=== PATIENT | male | born 1950 | race Caucasian/White ===

== ENCOUNTER 2025-02-10 14:56 | Outpatient (REF) | payer SELFPAY ==
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
--- OUTSIDE RECORDS SUMMARY | 2025-02-10 18:04 | XMS_ITS | Continuity of Care Document ---
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 Patient tolerating medication well at current dose without adverse effects. Refilled as below. Discussed plan with patient, who expressed understanding . Follow up as noted below. [email or web address] Not available 02/10/2025 14:42:10 Plan of Treatment Reminders Order Date Submit Date Provider Last Modified By Organization Details Last Modified Time Details Appointments FOLLOW UP 15 2024 02:15P REYNA ROLDAN Not available Not available Not available Lab hemoglobi n A1c, QN, blood 2024 025 [facility], [address] [place] [address], [id number], 02/10/2025 14:55:19 CMP, serum or plasma 2024 025 [facility], [address] [place] [address], [id number], 02/10/2025 14:55:19 CBC w/ auto diff 2024 025 [facility], [address] [place] [address], [id number], 02/10/2025 14:55:20 Referral None recorded. Procedures None recorded. Surgeries None recorded. Imaging None recorded. Medication Orders metoprolo l succinate ER 50 mg tablet,ex tended release 24 hr 2024 025 [id number], [address], [address], [place], [address], 02/10/2025 14:49:24 Patient TargetsNo targets recorded. Patient InstructionsNo instructions recorded. Reason for Referral None Reported. Problems Name Problem SNOMED Code Status Onset Date Resolution Date Notes Provider Name and Address Organization Details Recorded Time Parminder dillard 37051834 Active 2021 REYNA ARNOLD [address] [place], [address], [facility] 2 11:12:07 Adjustme nt disorder with depresse d mood 88484686 Active 2021 REYNA ARNOLD [address] [place] [address], [address], [facility] 2 16:40:04 Insomnia 384078066 Active 2021 REYNA ARNOLD [address] [place], [address], [facility] 2 10:58:30 Anxiety 23229015 Active 2022 REYNA ARNOLD [address] [place] [address], [address], [facility] 3 11:41:12 Pain of right shoulder joint 69860311415 458045 Active 2023 REYNA ARNOLD [address] [place] [address], [address], [facility] 4 09:26:29 Impaired fasting glycemia 508342261 Active 2024 REYNA ARNOLD [address] [place] [address], [address], [facility] 5 14:42:22 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 jessie Dobson [facility] [address] [place], [address], [facility] 8 11:07:41 Problem Notes None recorded. Medical Equipment None Reported. Allergies Allergen ID Allergen Name Allergen Category Reaction Reaction Severity Criticality Documentation Date Start Date Code Code System Note Provider Name and Address Organization Details Recorded Time 6160 eggplant allergeni c extract food Not available Not available Not available 09/22/2022 94913 1 RxNorm Janelle fields, [facility] 2 15:59:56 6287 trazodone medicatio n other Not available Not available 11/15/2022 15907 RxNorm sever e heart burn REYNA ARONLD [address] [place], [address], [facility] 3 11:30:56 Medications Name Sig [...] Not Available Vitals Date Recorded Body height Body mass index (BMI) Body weight Heart rate Oxygen saturation Oxygen saturation in Arterial blood by Pulse oximetry Systolic blood pressure Diastolic blood pressure Provider Name and Address Organization Details Last Updated DateTime 5 171.45 cm 28.7 kg/m2 68816.2 6 g 80 /min 96 % 96 % 130 mm[Hg] 84 mm[Hg] Alisa Tavares [facility] 5 14:24:43 Social History Question Answer Notes LastModified by Organizat ion Details LastModified Time Tobacco Smoking Status Current Every Day Smoker Not Available [facility] 03:36:24 What Was The Date Of Your Most Recent Tobacco Screening? 02/10/2025 [email or web address] Information not available 02/10/2025 How Much Tobacco Do You Smoke? 0.25 PPD Information not available 10/23/2022 How Many Years Have You Smoked Tobacco? 50 [id number] Information not available 09/07/2020 Do You Or [...] 30 mcg/0.3 mL dose 01/13/2021 completed Sonal [place] null, [facility] 11/15/2022 08:27:50 COVID-19, mRNA, LNP-S, PF, 30 mcg/0.3 mL dose 02/03/2021 completed Sonal fields, [facility] 11/15/2022 08:27:56 COVID-19, mRNA, LNP-S, PF, 30 mcg/0.3 mL dose 08/16/2021 completed Sonal fields [facility] 11/15/2022 08:28:03 COVID-19, mRNA, LNP-S, PF, 50 mcg/0.5 mL dose 08/29/2022 completed Sonal fields [facility] 11/15/2022 08:28:16 zoster recombinant 11/10/2022 completed Sonal fields [facility] 11/15/2022 08:28:38 influenza, unspecified formulation 08/29/2022 completed Sonal fields [facility] 11/15/2022 08:28:50 Past Encounters Encounter ID Performer Location Encounter Start Date Encounter Closed Date Diagnosis/Indication Diagnosis SNOMED-CT Code Diagnosis ICD10 Code Diagnosis Note [id number] REYNA ARNOLD [facility] [address],[place] [address] 02/10/2025 14:07:44 02/10/2025 15:47:01 Renewal of prescription 717445258 Z76.0 all set, 90 days Essential hypertension 18480776 I10 continue on metoprolol Impaired f asting glycemia 636642853 R73.01 will check BW for patien Health Concerns Section Related Observation LastModified by Organization Detai ls LastModified Time None Recorded Concern Status LastModified by Organization Details LastModified Time None Recorded Payers Encounter Date Sequence Insurance Name Policy Number Policy Jose Covered Member ID Jose Member ID Guarantor Name 02/10/2025 1 [employer]-ID: [employer]URE [id number] (MEDICARE REPLACEMENT PPO) [id number] Julio Tolbert [id number] Julio Tolbert Notes Date Note Type Note Provider Name a nd Address Organization Details Recorded Time 02/10/2025 text/html medication check HTN: today in the office the patient BP is 130/84 L armthe patient is doing well on the BP medication with no side effects and no adjustment of their medications needed today at the appointmentwell-co ntrolled on medicationdenies chest pain, sob, ankle swelling, orthopnea, palpitations shoulder pain: stable, doing much better, had a cortisone shot which worked great to treat the tendinitis IFG: had some concerns about his sugar, denies any sig symptoms like thirst or urination but has family hxwould like his levels checked otherwise doing wellmood is good REYNA ARNOLD [address] [place] [address], [place], [address], [place] [facility] 02/10/2025 14:54:25
[2025-02-10 18:55] LABS: Estimated Average Glucose 123 mg/dL; Hemoglobin A1C 170.1006 umol/L; Hemoglobin A1c % 5.9 % (<6.0); Total Hemoglobin (HGBA1C) 4193.8985 umol/L
[2025-02-10 19:11] LABS: Basophils Absolute Auto 0.1 X10*3/uL (0.0-0.2); Eosinophils Absolute Auto 0.2 X10*3/uL (0.0-0.4); Eosinophils Percent Auto 2.2 % (0-4); Hematocrit 45.4 % (42.0-52.0); Imm Gran Abs Auto 0.02 X10*3/uL (0.00-0.03); Imm Gran Pct Auto 0.3 % (0.0-0.4); Lymphocytes Absolute Auto 1.4 X10*3/uL (1.2-4.9); Lymphocytes Percent Auto 20.2 % (20-40); MANUAL DIFF FLAG SCAN; Mean Corpuscular HGB Conc 35.2 g/dl (31.0-36.0); Mean Corpuscular Hemoglobin 31.4 pg (27.0-33.0); Mean Corpuscular Volume 89.2 fL (80.0-98.0); Mean Platelet Volume 11.2 fL (9.4-12.4); Monocytes Absolute Auto 0.7 X10*3/uL (0.1-1.2); Monocytes Percent Auto 9.7 % (2-11); Neutrophils Absolute Auto 4.6 x10*3/uL (2.0-8.3); Neutrophils Percent Auto 66.6 % (45-73); PLT CLUMP 1; Red Blood Count 5.09 X10*6/uL (4.60-5.80); SCAN SMEAR FLAG 1
[2025-02-10 19:14] LABS: Platelet Count 126 X10*3/uL (160-400); White Blood Count 6.8 X10*3/uL (4.8-10.8)
[2025-02-10 19:15] LABS: SLIDE REVIEW VERIFIED
[2025-02-10 19:30] LABS: Alanine Aminotransferase 23 U/L (0-40); Albumin Level 4.2 g/dL (3.5-5.0); Alkaline Phosphatase 69 U/L (39-117); Anion Gap 13 (12-20); Aspartate Amino Transferase 31 U/L (5-37); Bilirubin Total 0.4 mg/dL (0.0-1.0); Blood Urea Nitrogen 32 mg/dL (9-16); Calcium 9.4 mg/dL (8.4-10.2); Carbon Dioxide 21 mmol/L (22-29); Chloride 111 mmol/L (96-108); Estimated Glomerular Filt Rate > 60; Glucose Random 112 mg/dL (60-115); Potassium 4.3 mmol/L (3.3-5.1); Sodium 141 mmol/L (135-145); Total Protein 6.9 g/dL (6.5-8.0)
== END 2025-02-10 14:57 | disposition home or self-care (01) ==
LOC: HO.MANLDS 14:56
PROVIDERS: Visit Provider Physician Assistant
DX: Z13.89 Encounter for screening for other disorder (principal)
CPT/HCPCS: 36415; 80053; 83036; 85025